=== PATIENT | male | born 1985 | race Caucasian/White ===

== ENCOUNTER 2019-01-04 06:50 | Day surgery (SDC) | payer BC ==
[~2019-01-04 06:50] MED LIST: Lactated Ringers 1,000 ML IV SCH
[2019-01-04] MEDS ORDERED: Lidocaine 2% 100 MG/5 ML Syringe ONE (07:10)
[2019-01-04] MEDS ORDERED: Propofol 200 MG/20 ML SDV ONE (07:10)
[2019-01-04] MEDS ORDERED: fentaNYL 250 MCG/5 ML SDV ONE (07:10)
[2019-01-04] MEDS ORDERED: Midazolam 1 MG/ML 2 ML SDV ONE (07:12)
--- NOTE | 2019-01-04 07:14 | PCM.PREANE ---
Preanesthetic Assessment - Anesthesia/Transfusion/Family Hx Anesthesia History: Prior Anesthesia Without Reaction (adult T&A) Family History of Anesthesia Reaction: No Transfusion History: No Prior Transfusion(s) - Review of Systems General: No Symptoms Pulmonary: No Symptoms Cardiovascular: No Symptoms Gastrointestinal: No Symptoms Neurological: No Symptoms Other: Reports: None - Physical Assessment Height: 6 ft 2 in Weight: 117.934 kg ASA Class: 2 Mental Status: Alert & Oriented x3 Airway Class: Mallampati = 2 Dentition: Reports: Normal Dentition (perm retainer behind max cent incisors) ROM/Head Extension: Full Lungs: Clear to Auscultation, Normal Respiratory Effort - Allergies Allergies/Adverse Reactions: Allergies Allergy/AdvReac Type Severity Reaction Status Date / Time Penicillins Allergy Cannot Verified 12/29/18 09:28 Remember - Blood Blood Available: No - Anesthesia Plan Pre-Op Medication Ordered: None - Acknowledgements Anesthesia Type Planned: General Anesthesia Pt an Appropriate Candidate for the Planned Anesthesia: Yes Alternatives and Risks of Anesthesia Discussed w Pt/Guardian: Yes Pt/Guardian Understands and Agrees with Anesthesia Plan: Yes Additional Comments: anes prob list: smoker, hx of anxiety- on SSRI and xanax PLAN: ga/lma PreAnesthesia Questionnaire HEENT History: Reports: None Cardiovascular History: Reports: None Respiratory History: Reports: None Gastrointestinal History: Reports: GERD Genitourinary History: Reports: None Musculoskeletal History: Reports: Fracture Other Musculoskeletal History: hx fx collarbone Neurological History: Reports: Concussion Psychiatric History: Reports: Anxiety Endocrine/Metabolic History: Reports: Obesity/BMI 30+ Hematologic History: Reports: None Immunologic History: Reports: None Oncologic (Cancer) History: Reports: None Dermatologic History: Reports: None - Past Surgical History Head Surgeries/Procedures: Reports: None HEENT Surgical History: Reports: Adenoidectomy, Oral Surgery, Tonsillectomy Cardiovascular Surgical History: Reports: None Respiratory Surgical History: Reports: None GI Surgical History: Reports: None Male Surgical History: Reports: None Endocrine Surgical History: Reports: None Neurological Surgical History: Reports: None Musculoskeletal Surgical History: Reports: None Oncologic Surgical History: Reports: None Dermatological Surgical History: Reports: None - SUBSTANCE USE Tobacco Use Within Last Twelve Months: Snuff/Dip Recreational Drug Use History: No - HOME MEDS Home Medications: Home Meds ALPRAZolam [Alprazolam] 1 tab PO ASDIRECTED PRN 12/29/18 [History] Ondansetron [Ondansetron ODT] 4 mg PO ASDIRECTED PRN 12/29/18 [History] Sertraline HCl 100 mg PO DAILY 12/29/18 [History] - CURRENT (IN HOUSE) MEDS Current Meds: Current Medications Hydrocodone Bitart/Acetaminophen ([place] 325-5 Mg) 1 - 2 tab PO Q4H PRN PRN Reason: Pain Clindamycin Phosphate 900 mg/ (Premix) 50 mls @ 89.286 mls/hr IV ONCALL THUY Lactated Ringer's (Ringers, Lactated) 1,000 mls @ 100 mls/hr IV ASDIRECTED THUY Discontinued Medications Fentanyl (Sublimaze) Confirm Administered Dose 250 mcg .ROUTE .STK-MED ONE Stop: 01/04/19 07:11 Lidocaine HCl (Xylocaine 2%) Confirm Administered Dose 100 mg .ROUTE .STK-MED ONE Stop: 01/04/19 07:11 Propofol (Diprivan 20 Ml) Confirm Administered Dose 200 mg .ROUTE .STK-MED ONE Stop: 01/04/19 07:11
[2019-01-04] MEDS ORDERED: Rocuronium 100 MG/10 ML Syringe ONE (07:27)
[2019-01-04] MEDS ORDERED: Clindamycin Phosphate in D5W 900 MG in Premix Bag 1 BAG IV SCH ×2 (08:00)
[2019-01-04] MEDS ORDERED: Dexamethasone 4 MG/ML 5 ML MDV ONE (08:11)
[2019-01-04] MEDS ORDERED: Ondansetron 4 MG/2 ML SDV ONE (08:12)
[2019-01-04] MEDS ORDERED: fentaNYL 100 MCG/2 ML SDV IVPUSH PRN (08:27)
[2019-01-04] MEDS ORDERED: Ketorolac 30 MG/ML SDV ONE (08:28)
--- NOTE | 2019-01-04 08:54 | PCM.OPNOTE ---
- General Post-Op/Procedure Note Date of Surgery/Procedure: 01/04/19 Operative Procedure(s): R knee scope with limited synovectomy Post-Op Diagnosis: R knee fat pad impingement, patella instability Anesthesia Technique: General LMA Primary Surgeon: Hilda Pal Fertilizing Machine Operator: Garo Rivero Jr EBL in mLs: 5 Condition: Good Free Text/Narrative:: tt=24 min #[id number]
[2019-01-04] MEDS ORDERED: Acetaminophen/HYDROcodone 325-5 MG Tab PO PRN (09:00)
--- NOTE | 2019-01-04 09:06 | PCM.POSTAN ---
POST ANESTHESIA ASSESSMENT - MENTAL STATUS Mental Status: Alert, Oriented - RESPIRATORY Respiratory Status: Respiratory Rate WNL, Airway Patent, O2 Saturation Stable - CARDIOVASCULAR CV Status: Pulse Rate WNL, Blood Pressure Stable - GASTROINTESTINAL GI Status: No Symptoms - POST OP HYDRATION Hydration Status: Adequate & Stable
--- NOTE | 2019-01-04 09:20 | PCM.POSTAN ---
POST ANESTHESIA ASSESSMENT - MENTAL STATUS Mental Status: Oriented - VITAL SIGNS SaO2: 97 - RESPIRATORY Respiratory Status: Respiratory Rate WNL, Airway Patent, O2 Saturation Stable - CARDIOVASCULAR CV Status: Pulse Rate WNL, Blood Pressure Stable - GASTROINTESTINAL GI Status: No Symptoms - PAIN Pain Score: 3 - POST OP HYDRATION Hydration Status: Adequate & Stable
--- NOTE | 2019-01-04 10:02 | PCM48HPAN ---
Post Anesthesia Note - EVALUATION WITHIN 48HRS OF ANESTHETIC Vital Signs in Normal Range: Yes Patient Participated in Evaluation: Yes Respiratory Function Stable: Yes Airway Patent: Yes Cardiovascular Function Stable: Yes Hydration Status Stable: Yes Pain Control Satisfactory: Yes Nausea and Vomiting Control Satisfactory: Yes Mental Status Recovered: Yes Resp Rate: 9 - COMMENTS/OBSERVATIONS Free Text/Narrative:: no anesthesia problems
--- NOTE | 2019-01-04 12:08 | OR ---
SURGEON: Hilda Pal MD DATE OF PROCEDURE: 01/04/2019 PREOPERATIVE DIAGNOSIS: Right knee patellar instability. POSTOPERATIVE DIAGNOSES: 1. Right knee patellar instability. 2. Right knee fat pad impingement. PROCEDURE: Right knee arthroscopy with limited synovectomy. PRIMARY SURGEON: Hilda Pal MD. ACCOUNTS RECEIVABLE ASSISTANT: Garo Rivero DO, PGY-2. ANESTHESIA: General. ESTIMATED BLOOD LOSS: 5 mL. TOURNIQUET TIME: 24 minutes. COMPLICATIONS: None. DVT PROPHYLAXIS: Not indicated. IMPLANTS USED: None. BRIEF HISTORY: Erwin is a 33-year-old male, who has had complaint of progressive right knee pain. He has had episodes of patellar instability as well. Due to his lack of response to conservative treatment, I did recommend surgical intervention. The risks and goals of the procedure were discussed with the patient and were documented preoperatively. He agreed to proceed. DESCRIPTION OF PROCEDURE: The patient was properly identified and brought to the operating room. He was transferred from the OR cart and placed on the operating room table in a supine position. General anesthesia was administered. After adequate anesthesia was obtained, a well-padded tourniquet was applied to the right lower extremity. The right lower extremity was then prepped in standard fashion using ChloraPrep solution. It was then sterilely draped. A time-out was performed to ensure correct site and procedure. Preoperative antibiotics were given. The surgical site had been marked preoperatively. An Esmarch was used to exsanguinate the right lower extremity and the tourniquet was inflated to 250 mmHg. A lateral portal arthrotomy was established. Blunt trocar and cannula were introduced into the suprapatellar space. Camera, inflow, and outflow were assembled. The suprapatellar space was inspected. No significant synovitis was noted. No loose bodies were identified. The patellofemoral joint was then visualized. Overall, the articular cartilage appeared quite good. There were no areas of excess wear and minimal degenerative changes were noted. The patella did appear to track in a slightly lateral position as the knee was taken through flexion and extension. There was some impingement of the fat pad noted as well. With a lateral pressure, the patella did centralize within the trochlea and track evenly. The lateral retinaculum did not appear to be excessively tight. I then entered down the lateral and medial gutter. No loose bodies were identified. I then entered the medial compartment. A medial portal arthrotomy was established. A blunt probe was inserted. The meniscus was extensively probed. No degenerative fraying or instability was noted. The joint surfaces showed grade 1 chondromalacia only. I then entered the notch. Both the ACL and PCL were visualized and probed and found to be intact. I then entered the lateral compartment. The lateral meniscus did not show any tearing or signs of instability. The lateral tibial plateau did show some degenerative findings consistent with grade 2 chondromalacia diffusely. The lateral femoral condyle showed grade 1 chondromalacia only. I then returned to the patellofemoral joint. A portion of the fat pad was excised and no further impingement was noted. Instruments were then removed from the knee. The portal sites were closed with 3-0 nylon. 1% lidocaine was injected along the portal tracts. Xeroform gauze was placed over the wounds and a bulky dressing was applied. Tourniquet was then deflated. He was awakened from his anesthetic and transferred back to the operating room cart. He was brought to recovery room in stable condition. All needle and sponge counts were correct. TO / OLAMIDE /[id number]
== END 2019-01-04 10:29 | disposition home or self-care (01) ==
LOC: MW.SDS 06:50
PROVIDERS: ATTEND Orthopaedic Surgery
DX: M23.51 Chronic instability of knee, right knee (principal); M25.861 Other specified joint disorders, right knee; M94.261 Chondromalacia, right knee; F41.9 Anxiety disorder, unspecified; F17.210 Nicotine dependence, cigarettes, uncomplicated; Z88.0 Allergy status to penicillin; Z79.899 Other long term (current) drug therapy
CPT/HCPCS: 29875; A4217; A9270; J0131; J0330; J1100; J1885; J2001; J2250; J2405; J2704; J3010; J3490; J7120; 88304

== ENCOUNTER 2020-01-19 09:34 | Emergency (ER) | payer BC ==
[2020-01-19] MEDS ORDERED: Famotidine 20 MG/2 ML SDV IVPUSH ONE (09:59)
[2020-01-19] MEDS ORDERED: Ondansetron 4 MG/2 ML SDV IVPUSH ONE (09:59)
[2020-01-19] MEDS ORDERED: Ketorolac 15 MG/ML SDV IVPUSH ONE (09:59)
[2020-01-19] MEDS ORDERED: Sodium Chloride 0.9% 10 ML Syringe FLUSH PRN (09:59)
[2020-01-19] MEDS ORDERED: Sodium Chloride 0.9% 2.5 ML Syringe FLUSH PRN (09:59)
--- NOTE | 2020-01-19 10:09 | EDM.PDOC ---
ED HPI GENERAL MEDICAL PROBLEM - General Chief Complaint: Gastrointestinal Problem Stated Complaint: DETOX OF MEDICATION Time Seen by Provider: 01/19/20 09:45 - History of Present Illness INITIAL COMMENTS - FREE TEXT/NARRATIVE: History of present illness: 34-year-old male presenting with diffuse abdominal pain, nausea, vomiting and diarrhea ongoing for months, with development of sweats, chills and fever over the last 2 weeks or so. He does report that he has been going through a lot emotionally recently and was started several months ago on an antidepressant/ anxiolytic, and he feels that he did not tolerate that medication well and has had some nausea ever since starting that, however the fevers and sweats are new. T-max 102 yesterday. Report that whenever he drinks water he either throws back up again or has diarrhea nearly immediately. He did stop drinking soda. No dysuria. No body aches. No chest pain. He does report that he has been having a lot of sweats, even when it is not hot outside. He reports no motivation to do anything, including his regular usual workday. Review of systems: As per history of present illness and below otherwise all systems reviewed and negative. Past medical history: As per history of present illness and as reviewed below otherwise noncontributory. Surgical history: As per history of present illness and as reviewed below otherwise noncontributory. Social history: No reported history of drug or alcohol abuse. Family history: As per history of present illness and as reviewed below otherwise noncontributory. Physical exam: HEENT: Atraumatic, normocephalic, pupils reactive, negative for conjunctival pallor or scleral icterus, mucous membranes moist, throat clear, neck supple, nontender, trachea midline. Forehead diaphoretic. Lungs: No respiratory distress, chest nontender. Heart: Rate and rhythm. Abdomen: Soft, nondistended, mildly tender diffusely. Negative for masses or hepatosplenomegaly. Negative for costovertebral tenderness. Pelvis: Stable nontender. Genitourinary: Deferred. Rectal: Deferred. Extremities: Atraumatic, negative for cords or calf pain. Neurovascular unremarkable. Neuro: Awake, alert, oriented. Motor and sensory unremarkable throughout. Exam nonfocal. Skin: Diaphoretic Diagnostics: Labs: Serum WBC elevated. Flu swab negative, COVID swab negative. UA with no signs of infection CT abdomen/pelvis: No acute intra-abdominal process, groundglass opacities both bases of the lungs, possible pneumonia. EKG: Sinus rhythm, rate 83, LVH, T inversion in lead III and aVF. No STEMI. No chest pain. Interpreted by me. Therapeutics: Toradol, Zofran, Pepcid. Symptoms much improved on reassessment. MDM: Abdominal pain, nausea, vomiting, chills and sweats, fevers at home, symptoms have largely been ongoing for weeks and in case of abdominal pain, months. Serum WBC is elevated today and patient is afebrile. CT abdomen/ pelvis shows no acute intra-abdominal findings but groundglass opacities, concerning for possible pneumonia. The patient has not been coughing but has generally felt ill for the last 2 weeks. No known exposure to coronavirus. Coronavirus swab was sent and is negative, however potential for swab negative coronavirus, therefore self-isolation for 2 weeks was discussed with the patient and will cover with azithromycin. Impression: Abdominal pain, pneumonia Plan: [] Definitive disposition and diagnosis as appropriate pending reevaluation and review of above. Abdominal Pain Score (Numeric/FACES): 5 - Related Data Allergies Allergy/AdvReac Type Severity Reaction Status Date / Time Penicillins Allergy Cannot Verified 01/19/20 09:45 Remember Home Meds: Home Meds Azithromycin [Zithromax] 250 mg PO DAILY #5 tab 01/19/20 [Rx] DULoxetine HCl [Duloxetine HCl] 30 mg PO DAILY 01/19/20 [History] Ondansetron [Zofran] 4 mg PO ASDIRECTED PRN 01/19/20 [History] Vortioxetine Hydrobromide [Trintellix] 10 mg PO DAILY 01/19/20 [History] Past Medical History HEENT History: Reports: None Cardiovascular History: Reports: None Respiratory History: Reports: None Gastrointestinal History: Reports: GERD Genitourinary History: Reports: None Musculoskeletal History: Reports: Fracture Other Musculoskeletal History: hx fx collarbone Neurological History: Reports: Concussion Psychiatric History: Reports: Anxiety, Depression Endocrine/Metabolic History: Reports: Obesity/BMI 30+ Hematologic History: Reports: None Immunologic History: Reports: None Oncologic (Cancer) History: Reports: None Dermatologic History: Reports: None - Infectious Disease History Infectious Disease History: Reports: Chicken Pox - Past Surgical History Head Surgeries/Procedures: Reports: None HEENT Surgical History: Reports: Adenoidectomy, Oral Surgery, Tonsillectomy Cardiovascular Surgical History: Reports: None Respiratory Surgical History: Reports: None GI Surgical History: Reports: None Male Surgical History: Reports: None Endocrine Surgical History: Reports: None Neurological Surgical History: Reports: None Musculoskeletal Surgical History: Reports: None Oncologic Surgical History: Reports: None Dermatological Surgical History: Reports: None Social & Family History - Family History Family Medical History: Noncontributory - Tobacco Use Smoking Status *Q: Unknown Ever Smoked - Caffeine Use Caffeine Use: Reports: Coffee - Recreational Drug Use Recreational Drug Use: Yes Recreational Drug Type: Reports: Marijuana/Hashish Recreational Drug Use Frequency: Daily ED ROS GENERAL - Review of Systems Review Of Systems: See Below (See dictation) ED EXAM, GI/ABD - Physical Exam Exam: See Below (See dictation) Course - Vital Signs Last Recorded V/S: Last Vital Signs Temp 96.3 F L 01/19/20 09:46 Pulse 78 01/19/20 13:16 Resp 18 01/19/20 09:46 BP 141/76 H 01/19/20 13:16 Pulse Ox 98 01/19/20 13:16 - Orders/Labs/Meds Orders: Active Orders 24 hr Category Date Time Status EKG Documentation Completion [RC] STAT Care 01/19/20 10:00 Active UA W/MICROSCOPIC [URIN] Stat Lab 01/19/20 13:22 Results Sodium Chloride 0.9% [Saline Flush] Med 01/19/20 09:59 Active 10 ml FLUSH ASDIRECTED PRN Sodium Chloride 0.9% [Saline Flush] Med 01/19/20 09:59 Active 2.5 ml FLUSH ASDIRECTED PRN Saline Lock Insert [OM.PC] Stat Oth 01/19/20 09:59 Ordered Medication Orders Sodium Chloride (Saline Flush) 10 ml FLUSH ASDIRECTED PRN PRN Reason: Keep Vein Open Last Admin: 01/19/20 10:08 Dose: 10 ml Sodium Chloride (Saline Flush) 2.5 ml FLUSH ASDIRECTED PRN PRN Reason: Keep Vein Open Last Admin: 01/19/20 10:08 Dose: 2.5 ml Labs: Laboratory Tests 01/19/20 01/19/20 01/19/20 Range/Units 09:45 09:45 11:34 WBC 15.94 H (4.0-11.0) K/uL RBC 5.18 (4.50-5.90) M/uL Hgb 16.4 (13.0-17.0) g/dL Hct 47.9 (38.0-50.0) % MCV 92.5 (80.0-98.0) fL MCH 31.7 (27.0-32.0) pg MCHC 34.2 (31.0-37.0) g/dL RDW Std Deviation 44.1 (28.0-62.0) fl RDW Coeff of Elaine 13 (11.0-15.0) % Plt Count 369 (150-400) K/uL MPV 10.40 (7.40-12.00) fL Neut % (Auto) 92.0 H (48.0-80.0) % Lymph % (Auto) 5.8 L (16.0-40.0) % Evangeline % (Auto) 1.9 (0.0-15.0) % Eos % (Auto) 0.2 (0.0-7.0) % Baso % (Auto) 0.1 (0.0-1.5) % Neut # (Auto) 14.7 H (1.4-5.7) K/uL Lymph # (Auto) 0.9 (0.6-2.4) K/uL Evangeline # (Auto) 0.3 (0.0-0.8) K/uL Eos # (Auto) 0.0 (0.0-0.7) K/uL Baso # (Auto) 0.0 (0.0-0.1) K/uL Nucleated RBC % 0.0 /100WBC Nucleated RBCs # 0 K/uL Sodium 131 L (136-148) mmol/L Potassium 3.4 L (3.5-5.1) mmol/L Chloride 93 L (98-107) mmol/L Carbon Dioxide 22.2 (21.0-32.0) mmol/L BUN 16 (7.0-18.0) mg/dL Creatinine 1.4 H (0.8-1.3) mg/dL Est Cr Clr Drug Dosing 76.77 mL/min Estimated GFR (MDRD) 58.0 ml/min Glucose 193 H (74-106) mg/dL Calcium 10.1 (8.5-10.1) mg/dL Total Bilirubin 1.5 H (0.2-1.0) mg/dL AST 24 (15-37) IU/L ALT 50 (14-63) IU/L Alkaline Phosphatase 78 (46-116) U/L Total Protein 9.3 H (6.4-8.2) g/dL Albumin 4.4 (3.4-5.0) g/dL Globulin 4.9 H (2.6-4.0) g/dL Albumin/Globulin Ratio 0.9 (0.9-1.6) Lipase 46 L (73-393) U/L TSH 3rd Generation 1.58 (0.36-3.74) uIU/mL Urine Color Urine Appearance Urine pH (5.0-8.0) Ur Specific Dameron (1.001-1.035) Urine Protein (NEGATIVE) mg/dL Urine Glucose (UA) (NEGATIVE) mg/dL Urine Ketones (NEGATIVE) mg/dL Urine Occult Blood (NEGATIVE) Urine Nitrite (NEGATIVE) Urine Bilirubin (NEGATIVE) Urine Urobilinogen (<2.0) EU/dL Ur Leukocyte Esterase (NEGATIVE) SARS-CoV-2 RNA (RT-PCR) NEGATIVE (NEGATIVE) 01/19/20 Range/Units 13:22 WBC (4.0-11.0) K/uL RBC (4.50-5.90) M/uL Hgb (13.0-17.0) g/dL Hct (38.0-50.0) % MCV (80.0-98.0) fL MCH (27.0-32.0) pg MCHC (31.0-37.0) g/dL RDW Std Deviation (28.0-62.0) fl RDW Coeff of Elaine (11.0-15.0) % Plt Count (150-400) K/uL MPV (7.40-12.00) fL Neut % (Auto) (48.0-80.0) % Lymph % (Auto) (16.0-40.0) % Evangeline % (Auto) (0.0-15.0) % Eos % (Auto) (0.0-7.0) % Baso % (Auto) (0.0-1.5) % Neut # (Auto) (1.4-5.7) K/uL Lymph # (Auto) (0.6-2.4) K/uL Evangeline # (Auto) (0.0-0.8) K/uL Eos # (Auto) (0.0-0.7) K/uL Baso # (Auto) (0.0-0.1) K/uL Nucleated RBC % /100WBC Nucleated RBCs # K/uL Sodium (136-148) mmol/L Potassium (3.5-5.1) mmol/L Chloride (98-107) mmol/L Carbon Dioxide (21.0-32.0) mmol/L BUN (7.0-18.0) mg/dL Creatinine (0.8-1.3) mg/dL Est Cr Clr Drug Dosing mL/min Estimated GFR (MDRD) ml/min Glucose (74-106) mg/dL Calcium (8.5-10.1) mg/dL Total Bilirubin (0.2-1.0) mg/dL AST (15-37) IU/L ALT (14-63) IU/L Alkaline Phosphatase (46-116) U/L Total Protein (6.4-8.2) g/dL Albumin (3.4-5.0) g/dL Globulin (2.6-4.0) g/dL Albumin/Globulin Ratio (0.9-1.6) Lipase (73-393) U/L TSH 3rd Generation (0.36-3.74) uIU/mL Urine Color YELLOW Urine Appearance HAZY Urine pH 6.5 (5.0-8.0) Ur Specific Dameron <= 1.005 (1.001-1.035) Urine Protein 30 H (NEGATIVE) mg/dL Urine Glucose (UA) NEGATIVE (NEGATIVE) mg/dL Urine Ketones NEGATIVE (NEGATIVE) mg/dL Urine Occult Blood TRACE-INTACT H (NEGATIVE) Urine Nitrite NEGATIVE (NEGATIVE) Urine Bilirubin NEGATIVE (NEGATIVE) Urine Urobilinogen 0.2 (<2.0) EU/dL Ur Leukocyte Esterase NEGATIVE (NEGATIVE) SARS-CoV-2 RNA (RT-PCR) (NEGATIVE) Meds: Medications Generic Name Dose Route Start Last Admin Trade Name Freq PRN Reason Stop Dose Admin Sodium Chloride 10 ml 01/19/20 09:59 01/19/20 10:08 Saline Flush FLUSH 10 ml ASDIRECTED PRN Administration Keep Vein Open Sodium Chloride 2.5 ml 01/19/20 09:59 01/19/20 10:08 Saline Flush FLUSH 2.5 ml ASDIRECTED PRN Administration Keep Vein Open Discontinued Medications Generic Name Dose Route Start Last Admin Trade Name Blayneq PRN Reason Stop Dose Admin Azithromycin 500 mg 01/19/20 13:06 Zithromax PO 01/19/20 13:07 ONETIME ONE Famotidine 20 mg 01/19/20 09:59 01/19/20 10:08 Pepcid IVPUSH 01/19/20 10:00 20 mg ONETIME ONE Administration Iopamidol 100 ml 01/19/20 11:58 01/19/20 12:04 Isovue Multipack-370 (76%) IVPUSH 01/19/20 11:59 100 ml ONETIME STA Administration Ketorolac Tromethamine 15 mg 01/19/20 09:59 01/19/20 10:08 Toradol IVPUSH 01/19/20 10:00 15 mg ONETIME ONE Administration Ondansetron HCl 4 mg 01/19/20 09:59 01/19/20 10:08 Zofran IVPUSH 01/19/20 10:00 4 mg ONETIME ONE Administration - Re-Assessments/Exams Free Text/Narrative Re-Assessment/Exam: 01/19/20 13:03 Patient is feeling much better. No acute distress. He does report that his symptoms are much improved. Discussed at length with the patient all findings on work-up here today, including opacities at the lung bases bilaterally and the potential for coronavirus, although his coronavirus swab was negative here today. However we did discuss the possibility of a swab negative coronavirus and the need to self isolate for 14 days, avoid contact with anyone else and avoid going out from his house. He will also need to not go to work. Work note will be given. Will give dose of azithromycin here and discharge with prescription for same. Departure - Departure Time of Disposition: 14:18 Disposition: Home, Self-Care 01 Condition: Good Clinical Impression: Vomiting and diarrhea, Vomiting, Diarrhea, Abdominal pain Pneumonia Qualifiers: Pneumonia type: due to unspecified organism Laterality: bilateral Lung location : lower lobe of lung Qualified Code(s): J18.9 - Pneumonia, unspecified organism Abdominal pain Qualifiers: Abdominal location: generalized Qualified Code(s): R10.84 - Generalized abdominal pain - Discharge Information Prescriptions: Azithromycin [Zithromax] 250 mg PO DAILY #5 tab Instructions: COVID-19 Frequently Asked Questions, COVID-19, Nausea and Vomiting, Adult, Uwka-[id number], Dehydration, Adult, Ncpi-[id number], Abdominal Pain , Adult, Mkqg-ei-Dxfg, Diarrhea, Adult, Pegv-vm-Zecj, Community-Acquired Pneumonia, Adult, Kech-ht-[id number], Prevent the Spread of COVID-19 if You Are Sick - [facility] Referrals: Augustina Mendez, [Primary Care Provider] - Forms: ED Department Discharge, ED Return to Work/School Form Additional Instructions: The following information is given to patients seen in the emergency department who are being discharged to home. This information is to outline your options for follow-up care. We provide all patients seen in our emergency department with a follow-up referral. The need for follow-up, as well as the timing and circumstances, are variable depending upon the specifics of your emergency department visit. If you don't have a primary care physician on staff, we will provide you with a referral. We always advise you to contact your personal physician following an emergency department visit to inform them of the circumstance of the visit and for follow-up with them and/or the need for any referrals to a consulting specialist. The emergency department will also refer you to a specialist when appropriate. This referral assures that you have the opportunity for follow-up care with a specialist. All of these measure are taken in an effort to provide you with optimal care, which includes your follow-up. Under all circumstances we always encourage you to contact your private physician who remains a resource for coordinating your care. When calling for follow-up care, please make the office aware that this follow-up is from your recent emergency room visit. If for any reason you are refused follow-up, please contact the [facility] Emergency Department at and asked to speak to the emergency department charge nurse. Please continue to follow-up with Dr. Mejia, who may decide to refer you to GI for follow-up if your symptoms do not improve. Sepsis Event Note (ED) - Evaluation Sepsis Screening Result: Possible Sepsis Risk - Focused Exam Vital Signs: Vital Signs Temp Pulse Resp BP Pulse Ox 01/19/20 13:16 78 141/76 H 98 01/19/20 12:10 75 126/82 98 01/19/20 09:46 96.3 F L 96 18 112/82 96 - My Orders Last 24 Hours: My Active Orders 01/19/20 09:59 Sodium Chloride 0.9% [Saline Flush] 10 ml FLUSH ASDIRECTED PRN Sodium Chloride 0.9% [Saline Flush] 2.5 ml FLUSH ASDIRECTED PRN Saline Lock Insert [OM.PC] Stat 01/19/20 10:00 EKG Documentation Completion [RC] STAT 01/19/20 13:22 UA W/MICROSCOPIC [URIN] Stat - Assessment/Plan Last 24 Hours: My Active Orders 01/19/20 09:59 Sodium Chloride 0.9% [Saline Flush] 10 ml FLUSH ASDIRECTED PRN Sodium Chloride 0.9% [Saline Flush] 2.5 ml FLUSH ASDIRECTED PRN Saline Lock Insert [OM.PC] Stat 01/19/20 10:00 EKG Documentation Completion [RC] STAT 01/19/20 13:22 UA W/MICROSCOPIC [URIN] Stat
[2020-01-19 10:41] LABS: CARBON DIOXIDE,CO2 22.2 mmol/L (21.0-32.0); POTASSIUM,K 3.4 mmol/L (3.5-5.1)
--- NOTE | 2020-01-19 11:27 | CT ---
CT abdomen and pelvis Technique: Multiple axial sections were obtained from above the dome of the diaphragm inferiorly through the pubic symphysis. Intravenous contrast was utilized. No oral contrast has been given. Comparison: No prior abdominal imaging is available. Findings: Visualized lung bases shows groundglass appearance. Liver shows no focal abnormality. Spleen appears within normal limits. Adrenal glands show no nodule. Pancreas is within normal limits. Gallbladder contains no calcified gallstones. Kidneys show symmetric contrast enhancement. Small cyst is noted within the right kidney measuring 4-5 mm. Aorta shows no aneurysm. No retroperitoneal adenopathy or mesenteric abnormalities are seen. No pelvic mass or adenopathy is seen. No free fluid or inflammatory change is seen. Diverticuli are noted within the sigmoid colon with no evidence of diverticulitis. Appendix is seen which is normal in size. No free fluid or inflammatory change is seen. Bone window settings were reviewed which shows no acute osseous finding. Impression: 1. Groundglass appearance within the visualized lung bases. Differential includes pneumonia which can be viral as well as bacterial, pulmonary fibrosis is also within the differential. 2. Other findings believed to be nonacute and incidental as noted above. Diagnostic code #5 This report was dictated in MDT
[2020-01-19] MEDS ORDERED: Iopamidol 755 MG/ML 500 ML Multipack Bottle IVPUSH STA (11:58)
[2020-01-19] MEDS ORDERED: Azithromycin 250 MG Tab PO ONE (13:06)
== END 2020-01-19 14:33 | disposition home or self-care (01) ==
LOC: MW.ED 09:34
DX: J18.9 Pneumonia, unspecified organism (principal); R10.84 Generalized abdominal pain; R19.7 Diarrhea, unspecified; R11.2 Nausea with vomiting, unspecified; K21.9 Gastro-esophageal reflux disease without esophagitis; E66.9 Obesity, unspecified; F41.9 Anxiety disorder, unspecified; F32.9 Major depressive disorder, single episode, unspecified; Z88.0 Allergy status to penicillin; Z79.899 Other long term (current) drug therapy
CPT/HCPCS: 74177; 80053; 81001; 83690; 84443; 85025; 87635; 87804; 93005; 96374; 96375; 99284; A9270; J1885; J2405; Q9967; S0028; J3490; U0002

== ENCOUNTER 2023-01-01 07:46 | Day surgery (SDC) | payer BC ==
[~2023-01-01 07:46] MED LIST changes: +fentaNYL 100 MCG/2 ML SDV ONE; +propofoL 50 ML ONE
[2023-01-01] MEDS ORDERED: Lidocaine 2% 5 ML SDV ONE (09:33)
== END 2023-01-01 10:45 | disposition home or self-care (01) ==
LOC: MW.SDS 07:46
PROVIDERS: ATTEND Surgery
DX: K57.30 Diverticulosis of large intestine without perforation or abscess without bleeding (principal); K63.5 Polyp of colon; K21.9 Gastro-esophageal reflux disease without esophagitis; E66.9 Obesity, unspecified; F41.9 Anxiety disorder, unspecified; F32.A Depression, unspecified; F17.210 Nicotine dependence, cigarettes, uncomplicated; Z80.0 Family history of malignant neoplasm of digestive organs; Z88.0 Allergy status to penicillin; Z79.899 Other long term (current) drug therapy; Z68.33 Body mass index [BMI] 33.0-33.9, adult
CPT/HCPCS: 45380; J2704; J3010; J7120; J3490